=== PATIENT | male | born 2000 | race Caucasian/White ===

== ENCOUNTER 2022-02-17 11:22 | Emergency (ER) | payer OTHER ==
[2022-02-17 12:27] LABS: BASOPHIL 0.1 % (0-2); EOSINOPHIL 0.4 % (0-5); HCT 43.6 % (42.0-52.0); HGB 14.4 g/dl (13.2-18.0); LYMPHOCYTE 9.6 % (15-48); MCV 90.8 fL (78.0-100.0); MONOCYTE 6.9 % (0-12); MPV 9.6 fL (6.0-9.5); NEUTROPHIL 82.3 % (41-80); NRBC 0; PLT 198 K/uL (150-400); RDW 13.1 % (11.5-14.0); WBC 7.5 K/uL (4.0-10.5)
[2022-02-17 12:53] LABS: BILIRUBIN NEGATIVE (NEGATIVE); BLOOD NEGATIVE Ery/uL (NEGATIVE); CLARITY CLEAR (CLEAR); COLOR YELLOW (YELLOW); GLUCOSE (U) NORMAL (NORMAL); LEUKOCYTES NEGATIVE Leu/uL (NEGATIVE); NITRITE NEGATIVE (NEGATIVE); PROTEIN NEGATIVE (NEGATIVE); SPECIFIC GRAVITY 1.015 (1.001-1.030); UROBILINOGEN 0.2 mg/dL (0.2-1.0); pH 7.5 (5.0-9.0)
[2022-02-17 12:57] LABS: ALBUMIN 3.9 g/dL (3.4-5.0); BILIRUBIN - TOTAL 0.8 mg/dL (0.2-1.0); BUN/CREAT RATIO (CALC) 7.1 RATIO; CREATININE 0.85 mg/dL (0.67-1.17); TOTAL PROTEIN 6.9 g/dL (6.4-8.2)
[2022-02-17] MEDS ORDERED: BENTYL10 MG PO (14:27)
== END 2022-02-17 14:56 | disposition home or self-care (01) ==
LOC: FER 11:22
PROVIDERS: Nurse Practitioner Family
DX: R10.84 Generalized abdominal pain (principal); R11.2 Nausea with vomiting, unspecified; R19.7 Diarrhea, unspecified; E86.0 Dehydration; M47.816 Spondylosis without myelopathy or radiculopathy, lumbar region; F17.290 Nicotine dependence, other tobacco product, uncomplicated; Z28.310 Unvaccinated for COVID-19
CPT/HCPCS: 36415; 80053; 81003; 82150; 83690; 85025; J1885; J2270; J2405; J7030; Q9967